=== PATIENT | female | born 1935 | race Caucasian/White ===

== ENCOUNTER 2018-06-06 19:55 | Inpatient (IN) | payer MEDICARE ==
[2018-06-06] MEDS ORDERED: Propofol 1,000 MG/100 ML VIAL IV ONE (20:03)
[2018-06-06] MEDS ORDERED: niCARdipine 20MG In NaCl 20 MG/200 ML BAG ONE (20:07)
[2018-06-06 20:13] LABS: Hemoglobin 13.9 g/dL (12.0-16.0); Mean Corpuscular HGB CONC 33.5 g/dL (32.0-36.0); Mean Corpuscular Hemoglobin 29.2 pg (27.0-31.0); Mean Corpuscular Volume 87.2 fL (78.0-98.0); Mean Platelet Volume 8.6 fL (7.4-10.4); Platelet Count 303 thou/uL (130-400); RBC Distribution Width 12.4 % (11.5-14.5); Red Blood Cell (RBC) Count 4.77 mill/uL (4.20-5.40); White Blood Cell (WBC) Count 23.8 thou/uL (4.8-10.8)
[2018-06-06 20:17] LABS: Actual Bicarbonate (HCO3a) 24.3 mEq/L (22-28); Analyzer IN Cardio ER; Base Excess (BEa) -1.6 mEq/L (-2.0 to +3.0); CO2 Tension 45.3 mmHg (35.0-45.0); Carboxyhemoglobin (COHb) 0.1 gm% (0.0-3.0); Hemoglobin (Hb) 14.9 g/dL (12.0-16.0); Potassium - ABG Lab 4.19 mmol/L (3.70-5.30); pH, Arterial 7.35 (7.35-7.45)
[2018-06-06 20:20] LABS: PTT 31.2 SEC (22.9-36.1); Prothrombin Time 13.7 SEC (12.0-14.7)
[2018-06-06 20:26] LABS: Band 2 % (5-11); Lymphocytes 6 % (21-51); MDiff Complete? YES; Monocytes 7 % (0-10); Neutrophil 81 % (42-75); Reactive Lymphocytes 4 % (0-10)
[2018-06-06 20:28] LABS: ALT (SGPT) 18 U/L (8-55); AST (SGOT) 31 U/L (5-34); Alkaline Phosphatase 94 U/L (40-150); Anion Gap 12 mmol/L (10-20); BUN (Urea Nitrogen) 19 mg/dL (9.8-20.1); Bilirubin, Total 0.7 mg/dL (0.2-1.2); Calc. Creatinine Clearance 0 mL/min (70-130); Calcium 9.1 mg/dL (7.8-10.44); Carbon Dioxide 26 mmol/L (23-31); Chloride 101 mmol/L (98-107); Estimated GFR-MDRD 60; Globulin 2.7 g/dL (2.4-3.5); Glucose 265 mg/dL (83-110); Potassium 4.3 mmol/L (3.5-5.1); Protein, Total 6.7 g/dL (6.0-8.3); Sodium 135 mmol/L (136-145)
--- NOTE | 2018-06-06 20:37 | CT ---
NONCONTRAST ENHANCED CT IMAGES OF THE BRAIN: 06/06/18 HISTORY: Stroke. Right sided deficit, facial drooping. Noncontrast enhanced CT images of the brain demonstrates a huge cerebellar central area of hemorrhage . Blood is seen extending into the fourth ventricle and lateral ventricles as well as the third ventr icle. There is also marked and extensive hemorrhage involving the central kirk. There is marked inferior cerebellar tonsillar herniation. IMPRESSION: Large intraparenchymal predominantly posterior fossa hemorrhage with extension interventricularly. Th ere is marked hydrocephalus and tonsillar herniation. Findings called to Dr. Merino at 8:11 p.m. on 06/06/18. Code CR POS: JOAN
--- NOTE | 2018-06-06 20:42 | RAD ---
EXAM: CHEST ONE VIEW: 06/06/18 HISTORY: Intracranial hemorrhage, stroke, unresponsiveness. Monitor leads overlie the chest. There is artifact overlying the chest. Endotracheal tube and NG tube s have been placed. Heart size is within normal limits. No confluent pneumonia or overt edema. IMPRESSION: No significant acute intrathoracic disease. Postop midline sternotomy. NG tube and endotracheal tubes are placed. Artifact overlies the chest. POS: RRE
[2018-06-06 20:50] LABS: CKMB 2.1 ng/mL (0-6.6)
--- NOTE | 2018-06-06 20:57 | PDOC.FPRHP ---
- History of Present Illness Chief Complaint: stroke History of Present Illness: This is an 83 yo F who presents to the ED for evaluation of stroke and unresponsiveness. The patient was seen normal at 11am with no deficits. She spoke with a relative over the phone around 2pm and no abnormality was noted. The patient found her semi-responsive around 6:30pm with right sided facial droop and right sided weakness. The reports that she was not able to follow commands at that time. Patient was intubated en route. She was hypertensive en route to the ER and was put on a cardine drip. Patient noted to have spontaneous movement of left side only in the ER. GSC of 6 on arrival and sedation GCS of 3. Event was sudden, patient had otherwise been feeling well prior to this event. ED Course: Propofol 5mcg/mg/min IV - Allergies/Adverse Reactions Allergies Allergy/AdvReac Type Severity Reaction Status Date / Time Penicillins Allergy Verified 06/07/18 03:10 Sulfa (Sulfonamide Allergy Verified 06/07/18 03:10 Antibiotics) - Home Medications Medication Instructions Recorded Confirmed Type Furosemide 20 mg PO DAILY 06/07/18 06/07/18 History Glimepiride 1 mg PO QAM-WM 06/07/18 06/07/18 History Levothyroxine Sodium 50 mcg PO DAILY 06/07/18 06/07/18 History Lisinopril 10 mg PO DAILY 06/07/18 06/07/18 History Metoprolol Succinate [Toprol XL] 50 mg PO DAILY 06/07/18 06/07/18 History Rosuvastatin Calcium [Crestor] 20 mg PO 06/07/18 History Venlafaxine HCl [Venlafaxine HCl 150 mg PO DAILY 06/07/18 06/07/18 History ER] traMADol HCl [Ultram] 50 mg PO DAILY 06/07/18 06/07/18 History - History PMHx: HTN, hypothyroidsm, DM, kidney stones PSHx: bypass surgery 18 yrs ago FHx: non contributory Social: - - Review of Systems ROS unobtainable: due to endotracheal tube - Vital signs BP: 204/161 HR: 83 RR: 15 Tmax: 94.8F Pox: 100% on vent Wt: 73.2kg - Physical Exam -Constitutional: patient intubated, unresponsive HEENT: MMM -HEENT: pupils fixed and dilated Neck: supple, trachea midline Chest: no lesions Heart: RRR, normal S1/S2, no murmurs/rubs/gallops, pulses present, no edema Lungs: CTAB, no rales/rhonchi, no wheezing Abdomen: soft, bowel sounds present, no masses/distention, no hernias Musculoskeletal: normal structure, normal tone -Neurological: No eye opening, no verbal response, spontaneous movement of left side only, no withdrawal to pain Skin: no rash/lesions, good turgor, capillary refill <2 seconds Heme/Lymphatic: no unusual bruising or bleeding, no purpura, no petechia FMR H&P: Results - Labs Result Diagrams: 06/06/18 20:00 06/06/18 20:00 Lab results: WBC 23.8 thou/uL (4.8-10.8) H 06/06/18 20:00 Hgb 13.9 g/dL (12.0-16.0) 06/06/18 20:00 Hct 41.6 % (36.0-47.0) 06/06/18 20:00 MCV 87.2 fL (78.0-98.0) 06/06/18 20:00 Plt Count 303 thou/uL (130-400) 06/06/18 20:00 Band Neuts % (Manual) 2 % (5-11) L 06/06/18 20:00 Sodium 135 mmol/L (136-145) L 06/06/18 20:00 Potassium 4.3 mmol/L (3.5-5.1) 06/06/18 20:00 Chloride 101 mmol/L (98-107) 06/06/18 20:00 Carbon Dioxide 26 mmol/L (23-31) 06/06/18 20:00 BUN 19 mg/dL (9.8-20.1) 06/06/18 20:00 Creatinine 0.90 mg/dL (0.6-1.1) 06/06/18 20:00 Glucose 265 mg/dL (83-110) H 06/06/18 20:00 Calcium 9.1 mg/dL (7.8-10.44) 06/06/18 20:00 Total Bilirubin 0.7 mg/dL (0.2-1.2) 06/06/18 20:00 AST 31 U/L (5-34) 06/06/18 20:00 ALT 18 U/L (8-55) 06/06/18 20:00 Alkaline Phosphatase 94 U/L (40-150) 06/06/18 20:00 CK-MB (CK-2) 2.1 ng/mL (0-6.6) 06/06/18 20:00 Serum Total Protein 6.7 g/dL (6.0-8.3) 06/06/18 20:00 Albumin 4.0 g/dL (3.4-4.8) 06/06/18 20:00 - Radiology Interpretation CT scan - pelvis Status: report reviewed by me (intraparenchymal hemorrhage in posterior fossa and extenting interventricularly. Hydrocephalus and tonsillar herniation) FMR H&P: A/P - Problem List (1) Intracranial hemorrhage Current Visit: Yes Status: Acute Code(s): I62.9 - NONTRAUMATIC INTRACRANIAL HEMORRHAGE, UNSPECIFIED (2) Diabetes Current Visit: Yes Status: Acute Code(s): E11.9 - TYPE 2 DIABETES MELLITUS WITHOUT COMPLICATIONS (3) HTN (hypertension) Current Visit: Yes Status: Acute Code(s): I10 - ESSENTIAL (PRIMARY) HYPERTENSION (4) Depression Current Visit: Yes Status: Acute Code(s): F32.9 - MAJOR DEPRESSIVE DISORDER , SINGLE EPISODE, UNSPECIFIED (5) Hypothyroidism Current Visit: Yes Status: Acute Code(s): E03.9 - HYPOTHYROIDISM, UNSPECIFIED - Plan Hemorrhagic CVA w/ tonsillar herniation Patient seen normal around 1100 and found down around 1900. Right sided deficits. CT confirming ICH w/ large intraparenchymal predom posterior fossa hemorrhage w/ extension interventricularly. Marked hydrocephalus and tonsilar herniation. - Neurosurgery consulted and evaluated patient in the ED and recommend no intervention at this time. They are to have a family meeting in the morning to go over plan/goals of care. Poor prognosis. At this time, family still need time to think about goals of care. - Will maintain SBPs between <160 with propofol; will continue to monitor VS; patient currently intubated and on sedation - Pulm consulted - Will consult hospice/palliative/spiritual care - Elevate head of bed, neuro checks q 4 hrs - Repeat CT in AM HTN - aware, BP being controlled with propofol. Hold home meds Hypothyroidism - aware, will monitor. Hold home meds. DM2 - Will put on SS and monitor glucose. Accuchecks q6hrs. Depression - Chronic issue. Hold home meds DISPO: admit to CCU CODE: FULL - family is taking time to discuss/decide GI ppx: protonix Case discussed with Dr. Yoder FMR H&P: Upper Level - Pertinent history History is provided by patient's family. 83F with hx of HTN, CAD, hypothyrodism , diabetes, presents after being found down. Patient was lasted noted to be normal at 1400 today over phone with son. At 1800, patient was found down by . Associated with right sided facial droop, weakness, confusion. EMS intubated patient in field with etomidate, succ and fentanyl. She was hypertensive at 243/107 an started on cardene drip prior to ER arrival. In ERLab and imaging pertinent for hemorrhagic stroke with tonsilar herniation. Neurosurg was consulted from ER where they felt that surgical intervention would not improve outcome. - Pertinent findings Gen: Intubated HEENT: Fixed dilated pupil. Endotracheal tube in place. CV: RRR with no apparent m/g/r Resp: Intubated GI soft, normoactive Neuro: GCS 3-5, occasional twitching, no clonus noted, mild decorticate posturing, unresponsive but sedated - Plan Date/Time: 06/06/182054 1. ICH with tonsillar herniation - Poor prognosis - Neurosurg feels surgical intervention will not improve outcome - Plan, continue resp and pressure support. Will repeat CT imaging in morning. Will follow with neurosurg recs. - At this time, family still need time to think. Will discuss code status tomorrow, as well as goal of care. Consult palliative/hospice 2. DM2 - Chronic issue, ill control with SSI 3. Hypothyrodism - Chronic issue, at this time, will hold as patient is intubated and NPO 4. HTN - Chronic issue, hold BP med. Will adjust BP as needed with cardene 5. Hx of CAD - Chronic issue, hold statin at this time, patient intubated and NPO 6. Indeterminate trop - Likely secondary to initial elevated pressure and not ACS. At this time, patient not stable for intervention due to bleed 7. Leukoctosis - Likely stress response. ER has drawn culture, will await result, but not sign on imaging or in vital to suggest infection 8. Hx of depression - Chronic issue, hold home med. I, [Fernandez Bui], have evaluated this patient and agree with findings/plan as outlined by internet designer resident. Pertinent changes/additions are listed here. Addendum - Attending - Attending Attestation Date/Time: 06/06/18 8401 I personally evaluated the patient and discussed the management with Dr. Munoz/ Ramya. I agree with the History, Examination, Assessment and Plan documented above with any addition or exceptions noted below. Patient is a 83-year-old female with past medical history of hypertension, depression, kidney aneurysm who presents to the emergency room tonight after being found down at home. Per family, patient was a normal state of health at 2: 30 this afternoon. They returned home later in the evening, and found her unresponsive lying in the floor. EMS was contacted who transported the patient to our facility. Patient was intubated in the field due to breathing irregularities. Per EMS report, patient originally only had some right sided weakness but during their evaluation became nonresponsive. On arrival, she had systolic blood pressure is greater than 200, and was noted to have some Myoclonic jerks. Currently, she is into baited and sedated. She is noted to have some spontaneous jerks but no purposeful movement. blood pressure is currently sister Eric 120s on nicardipine drip. Labs are overall nonrevealing, with the exception of a mild hyponatremia and hyperglycemia. She also has elevated white count that is likely reactive in nature. CT of the brain shows intracerebral hemorrhage with tonsillar herniation in addition to extension of the bleeding into her ventricle is bilaterally. No major midline shift identified on my read. Patient will be admitted to the critical care unit for intracerebral hemorrhage and hemorrhagic CVA. Neurosurgery has been consulted and they report non-operative management at this time. We will support her vitals with ventilatory support as needed as well as sedation and blood pressure control with nicardipine. Will add sliding scale insulin to prevent hyperglycemia. Repeat CT in the morning to monitor progression of her hemorrhage. Further management per neurosurgery recommendations. Critical care/ pulmonology will also be consult it for vent management. I had a lengthy discussion with the family at bedside, including the and daughter, about the patients current critical condition as well as expected course and poor prognosis. We discussed code status, and the family would like more time to think about it. At the current moment, patient will remain full code until the family is able to agree on their wishes. 45 minutes CC time. Chas Yoder MD
[2018-06-06] MEDS ORDERED: Ondansetron PF 4 MG/2 ML Vial IVP PRN (21:17)
[2018-06-06 21:18] LABS: O2 Tension (PaO2) 591.6 mmHg (> 60.0); Puncture Site LRA
[2018-06-06 21:19] LABS: ALV-art Gradient 64.775 (0-20)
[2018-06-06] MEDS ORDERED: Lorazepam 2 MG/ML VIAL SLOW IVP PRN (21:29)
[2018-06-06] MEDS ORDERED: Propofol 1,000 MG/100 ML VIAL IV PRN (21:29)
[2018-06-06] MEDS ORDERED: DISCONTINUE PREVIOUS NARCOTIC PAIN MEDICATIONS AND BENZODIAZEPINES FS SCH (21:29)
[2018-06-06] MEDS ORDERED: Fentanyl BOLUS 250 ML IVPB PRN (21:29)
[2018-06-06] MEDS ORDERED: fentaNYL Citrate/PF 2,000 MCG in Sodium Chloride 0.9% 60 ML IV SCH (21:29)
[2018-06-06] MEDS ORDERED: Propofol BOLUS 1,000 MG/100 ML VIAL IV PRN (21:29)
[2018-06-06] MEDS ORDERED: Morphine 2 MG/ML SYRINGE SLOW IVP PRN (21:29)
[2018-06-06] MEDS ORDERED: Ventilator Sedation Protocol 1 EACH FS SCH (21:30)
[2018-06-06] MEDS ORDERED: Insulin Regular 300 UNITS/3 ML VIAL SC PRN (22:14)
[2018-06-06] MEDS ORDERED: Dextrose 5% in Water 1,000 ML IV PRN (22:32)
[2018-06-06] MEDS ORDERED: Dextrose 50% Abboject 50 ML SYRINGE IVP PRN (22:32)
[2018-06-06 22:39] LABS: Bilirubin Negative (Negative); Blood, Urine Large (Negative); Clarity CLEAR (Clear); Glucose, Urine (Dipstick) 250 mg/dL (Negative); Leukocyte Negative (Negative); Nitrite Negative (Negative); Protein, Urine (Dipstick) 300 mg/dL (Neg-Trace); Specific Gravity, Urine 1.011 (1.002-1.036); pH, Urine 7.5 (5.0-9.0)
[2018-06-06 22:41] LABS: Bacteria/HPF None Seen HPF (None Seen); Hyaline Casts/LPF 0-3 HYALINE CAST LPF (0-3 Hyaline); Pathc Cast-AUWi Flag 0.13 (0-2.49); RBC/HPF GREATER THAN 50-TNTC HPF (0-3); Squamous Epithelial 0-3 HPF (0-3); WBC/HPF 0-3 HPF (0-3)
--- NOTE | 2018-06-06 23:13 | HP ---
HISTORY OF PRESENT ILLNESS: Ms. Cisneros is an 83-year-old woman, who was brought in to the emergency department via EMS transport for sudden loss of consciousness, fall around 5:30 this afternoon at home. He states that she was able to squeeze his hand and seemed like she wanted to talk, but was unable to do so. Last time, she was reported to be normal was around 3 o'clock this afternoon via a phone call, the last time she was seen normal was around 11 o'clock this morning. Neurosurgery was called for a CT scan performed in the department revealing a very large central cerebellar hemorrhage causing significant compression of the surrounding parenchyma as well as the fourth ventricle, third ventricle, and lateral ventricles all have intraventricular hemorrhage. She already has enlargement of the occipital and temporal horns of the bilateral lateral ventricles. There is also extensive hemorrhage within the brainstem in the kirk and midbrain causing significant mass effect in the surrounding medullary tissue. For me at bedside, she is intubated already. She received medications for SI in the field, but reportedly was nonresponsive, only spontaneously moving her left lower extremity, but not any to stimulus from report. She is sedated on propofol at the moment. PAST MEDICAL HISTORY: Significant for coronary artery disease. PAST SURGICAL HISTORY: Positive for quadruple bypass. MEDICATIONS: Incompletely assessed. She does take aspirin daily, but no other blood thinners according to family. ALLERGIES: NO KNOWN DRUG ALLERGIES. PHYSICAL EXAMINATION: Again, the patient is intubated and obtunded. Her pupils are equal, but nonreactive. She has no corneal reflex. She has no gag reflex or cough reflex. She does not fight or barnett the ventilator and O2 even when sedation has been turned off. She has no response to any stimulus centrally nor in the bilateral upper extremities. She does withdraw the lower extremities to deep pain bilaterally. ASSESSMENT: Cerebellar and brainstem hemorrhage and obtundation. PLAN: I discussed with the family at bedside including daughter, son-in-law, and as well as two granddaughters. This represents a devastating brain hemorrhage and injury and likely is non-survivable. I explained that at the moment the most we can offer is comfort and supportive care. We will observe her overnight in the ICU to see if there is some type of miraculous recovery, though I do not anticipate this and expressed this explicit nature to family. Family expresses understanding and obviously emotional in the room. I feel once in the ICU, we can wean her from sedation as tolerated. I would like to see her systolic blood pressures maintained under 150, so pressor support may be necessary if mean arterial pressure falls below 65, though again medical intervention will be limited given prognosis. We will consult our colleagues in Pulmonary Critical Care and revisit with the family and the patient in the morning. Job ID: [id number]
[2018-06-07 05:36] VITALS: BMI 24.1
--- NOTE | 2018-06-07 06:48 | PDOC.FM ---
- Subjective Subjective: Patient on vent. L foot movement. Appeared to respond to pain from upper arm. - Objective Vital Signs & Weight: Vital Signs (12 hours) Temp Pulse Resp Pulse Ox 06/07/18 06:00 15 06/07/18 04:00 100.2 F H 15 06/07/18 02:00 15 06/07/18 00:00 98.6 F 15 06/06/18 23:59 98.6 F 82 15 100 06/06/18 23:30 100 Weight Weight 72.3 kg Most Recent Monitor Data Heart Rate from ECG 85 NIBP 150/71 NIBP BP-Mean 97 Respiration from ECG 15 SpO2 100 I&O: 06/05/18 06/06/18 06/07/18 06:59 06:59 06:59 Intake Total 332.8 Output Total 448 Balance -115.2 Result Diagrams: 06/06/18 20:00 06/06/18 20:00 Phys Exam - Physical Examination Respiratory: clear to auscultation bilateral (on vent) sinus tachycardia Gastrointestinal: soft slightly distended Musculoskeletal: no edema spontaneous L foot movement, appeared to respond to UE painful stimuli Skin: cap refill <2 seconds Dx/Plan (1) Intracranial hemorrhage Code(s): I62.9 - NONTRAUMATIC INTRACRANIAL HEMORRHAGE, UNSPECIFIED Status: Acute (2) Diabetes Code(s): E11.9 - TYPE 2 DIABETES MELLITUS WITHOUT COMPLICATIONS Status: Acute (3) HTN (hypertension) Code(s): I10 - ESSENTIAL (PRIMARY) HYPERTENSION Status: Acute (4) Hypothyroidism Code(s): E03.9 - HYPOTHYROIDISM, UNSPECIFIED Status: Chronic (5) Depression Code(s): F32.9 - MAJOR DEPRESSIVE DISORDER, SINGLE EPISODE, UNSPECIFIED Status : Chronic - Plan Plan: Hemorrhagic CVA w/ tonsillar herniation - CT confirming ICH w/ large intraparenchymal predom posterior fossa hemorrhage w/ extension interventricularly. Marked hydrocephalus and tonsilar herniation. - Poor prognosis - Will maintain SBPs <150 with propofol; will continue to monitor VS; patient currently intubated and on sedation - Pulm consulted - Elevate head of bed, neuro checks q 4 hrs - Appreciate recommendations from Dr. Gary Indeterminate trop - Likely secondary to initial elevated pressure and not ACS Leukocytosis - Likely stress response HTN - BP being controlled with propofol. Hold home meds Hypothyroidism - Hold home meds. DM2 - Will put on SS and monitor glucose. Accuchecks q6hrs. Depression - Hold home meds Hx of CAD - Chronic issue, hold statin at this time, patient intubated and NPO DISPO: admit to CCU CODE: FULL - family is taking time to discuss/decide GI ppx: protonix Dispo: Family plans to meet with Neurosurgery this morning to further discuss plan. Very poor prognosis. Addendum - Attending - Attending Attestation Date/Time: 06/07/18 6436 I personally evaluated the patient and discussed the management with Dr. Lopez. I agree with the History, Examination, Assessment and Plan documented above with any addition or exceptions noted below. Patient stable overnight but continues to be critical condition. She has suffered a likely catastrophic intracerebral hemorrhage due to size and location. Continues to have some spontaneous movement this AM, unsure if purposeful but likely not. Continue to keep SBP at goal for ICH and await further NSGY recs. I have been told there will be a meeting with the family later today about her prognosis. I had lengthy discussion with family last night suggested that the patient would be very unlikely to recover. Family taking time to decide on code status and future interventions though she is not a candidate for surgical intervention per NSGY.
[2018-06-07] MEDS ORDERED: niCARdipine HCl 50 MG in Sodium Chloride 0.9% 250 ML 230 ML IVPB PRN (08:36)
[2018-06-07] MEDS ORDERED: Prevnar 13-Val Conj/PF 0.5 ML SYRINGE IM ONE (09:00)
[2018-06-07] MEDS ORDERED: Lisinopril 10 MG TAB PO SCH (09:00)
[2018-06-07] MEDS ORDERED: Pantoprazole 40 MG VIAL IVP SCH (09:00)
--- NOTE | 2018-06-07 09:48 | PRG ---
DATE OF SERVICE: 06/07/2018 SUBJECTIVE: Ms. Cisneros was admitted last night for devastating intracerebral hemorrhage in the cerebellum and brainstem. This is a very unfortunate patient in terms of the location of her hemorrhage. Last night we had no exam. This morning, she actually does have a gag reflex and a cough reflex. She does not have a corneal reflex. Her pupils are still fixed at 5 mm and nonreactive. She postures to stimulus to the bilateral upper extremities. She still withdraws, which is stable to yesterday in the bilateral lower extremities to pain. She when off sedation does over breathe on occasion on the ventilator. Neurologically, she may be intervally improved very marginally. I still believe that this represents a fatal hemorrhage and ultimately she is unsurvivable. I discussed with Family Medicine who are in the room and let them know that we are planning any interventions at anytime. We are all on the same page. Plan will be to again give family time in terms of deciding in which direction they are going to go. I do not believe the patient is a DNR at this time but it is likely to be the patient's best interest, although we will follow family's wishes. Job ID: [id number]
[2018-06-07] MEDS ORDERED: Metoprolol Tartrate 25 MG TAB PER TUBE SCH ×2 (10:30→21:00)
[2018-06-07] MEDS ORDERED: Norepinephrine 8 MG/0.9% NS 250 ML ONE (11:32)
[2018-06-07 13:32] VITALS: TEMP 105.8
[2018-06-07 15:02] VITALS: BP 45/28
--- NOTE | 2018-06-07 16:00 | PDOC.EVN ---
Event Note - Event Note Event Note: Progress Note of : HEENT: pupils fixed and dilated Card: no pulse, no auscultated heart sounds Resp: no spontaneous respirations Neuro: no withdrawal to painful stimuli TOD: 06/07/2018, 15:42 The family does not request an autopsy.
--- NOTE | 2018-06-07 16:43 | DIS ---
DATE OF ADMISSION: 06/06/2018 DATE OF DISCHARGE: 06/07/2018 DATE OF : 06/07/2018. TIME OF : 154. CAUSE OF : 1. Hemorrhagic cerebrovascular accident. 2. Intracerebral hemorrhage. SECONDARY DIAGNOSES: 1. Leukocytosis. 2. Indeterminate troponins. 3. Hypertension. 4. Hypothyroid. 5. Type 2 diabetes. 6. Depression. 7. Coronary artery disease. HOSPITAL COURSE: An 83-year-old female presented to the emergency department for evaluation of stroke and unresponsiveness. On route to the ER, she was hypertensive and was put on a Cardene drip. GCS of 6 on arrival and with sedation was GCS of 3. The patient was started on propofol in the ER, was intubated and unresponsive. Brain CT showed a large intraparenchymal predominantly posterior fossa hemorrhage with extension intraventricularly. Marked hydrocephalus and tonsillar herniation present. Neurosurgery was consulted and supportive care was discussed as being the best option as the patient had a poor prognosis. Pulmonology was also consulted as the patient was admitted to the CCU. Palliative care team additionally met with the family. The patient was made a DNR. The patient's vital signs progressively deteriorated throughout the day and the patient at 1542 on 06/07/2018. Job ID: [id number]
[2018-06-07] MEDS ORDERED: Norepinephrine 8 MG/250 ML BAG IVPB PRN (17:02)
--- NOTE | 2018-06-07 23:54 | CON ---
DATE OF CONSULTATION: 06/07/2018 SUBJECTIVE: Ms. Cisneros is an unfortunate female who has had parenchymal brain hemorrhage. She was rapidly declining when I arrived this morning make rounds. Her blood pressure dropped into the 60s. She was placed on Levophed through the IV that she had just until family can make decisions. Family was told that it was felt that she had a fatal brain hemorrhage and there was nothing that could be done. They have decided to make her do not resuscitate patient. OBJECTIVE: On exam, she was flaccid. She had clear lungs. Heart, regular rhythm. Abdomen is soft. Extremities were without asymmetry. As the morning progressed into the afternoon, family all arrived. They had made her do not resuscitate patient. I explained to family that keeping her on Levophed was just keeping her here when it was felt clinically that she was brain by Dr. Prasad and myself as well. We stopped her pressors and she quickly succumbed. Body was released to the home. Family was appreciative of the care that was given. CRITICAL CARE TIME: 35 minutes. Job ID: [id number] MTDD
== END 2018-06-07 15:42 | disposition expired | DRG 64 ==
LOC: ERS 19:55 → CCU 20:50
PROVIDERS: ADMIT Student in an Organized Health Care Education/Training Program; ATTEND Student in an Organized Health Care Education/Training Program
PROC: 0BH17EZ Insertion of Endotracheal Airway into Trachea, Via Natural or Artificial Opening (ICD-10-PCS; principal; 2018-06-06)
PROC: 5A1935Z Respiratory Ventilation, Less than 24 Consecutive Hours (ICD-10-PCS; 2018-06-06)
PROC: 3E033XZ Introduction of Vasopressor into Peripheral Vein, Percutaneous Approach (ICD-10-PCS; 2018-06-06)
DX: I61.3 Nontraumatic intracerebral hemorrhage in brain stem (principal); G93.5 Compression of brain; G81.91 Hemiplegia, unspecified affecting right dominant side; E87.1 Hypo-osmolality and hyponatremia; I16.1 Hypertensive emergency; I61.4 Nontraumatic intracerebral hemorrhage in cerebellum; Z66 Do not resuscitate; E03.9 Hypothyroidism, unspecified; F32.9 Major depressive disorder, single episode, unspecified; I25.10 Atherosclerotic heart disease of native coronary artery without angina pectoris; E11.65 Type 2 diabetes mellitus with hyperglycemia; I10 Essential (primary) hypertension; D72.829 Elevated white blood cell count, unspecified; I72.2 Aneurysm of renal artery; Z95.1 Presence of aortocoronary bypass graft; Z79.82 Long term (current) use of aspirin; Z88.2 Allergy status to sulfonamides; Z88.0 Allergy status to penicillin; R29.810 Facial weakness; Z79.84 Long term (current) use of oral hypoglycemic drugs; R40.2313 Coma scale, best motor response, none, at hospital admission; R40.2113 Coma scale, eyes open, never, at hospital admission; R40.2213 Coma scale, best verbal response, none, at hospital admission
CPT/HCPCS: 36416; 51702; 70450; 71045; 80053; 81003; 81015; 82553; 82805; 84484; 85025; 85610; 85730; 90471; 90670; 93005; 94002; 94003; 96365; 96366; 99292; C9113; G0009; J1815; J2704; J7050